=== PATIENT | female | born 1955 | race Two or more races ===

== ENCOUNTER 2019-09-22 13:34 | Day surgery (SDC) | payer BC ==
--- NOTE | 2019-09-22 06:50 | P.GSHP ---
History of Present Illness H&P Date: 09/22/19 CHIEF COMPLAINT: Ventral hernia HISTORY OF PRESENT ILLNESS: The patient is a 64-year-old female who presents with a history of swelling and pain along the abdomen from a hernia. Now he presents for surgical intervention. PAST MEDICAL HISTORY: Please see list. PAST SURGICAL HISTORY: Please see list. MEDICATIONS: Please see list. ALLERGIES: Please see list. SOCIAL HISTORY: Please see list. FAMILY HISTORY: No reports of Crohn disease or ulcerative colitis. REVIEW OF ORGAN SYSTEMS: CONSTITUTIONAL: No reports of fevers or chills. No reports of weight loss despite prior attempts. GI: Denies any blood in stools or constipation. PHYSICAL EXAM: VITAL SIGNS: Stable GENERAL: Well-developed pleasant male in no acute distress. HEENT: No scleral icterus. Extraocular movements grossly intact. Moist buccal mucosa. NECK: Supple without lymphadenopathy. CHEST: Unlabored respirations. Equal bilateral excursions. CARDIOVASCULAR: Irregular rate and rhythm. Distal 2+ pulses. ABDOMEN: Soft, nondistended. Palpable defect of the abdomen. No peritoneal signs. MUSCULOSKELETAL: No clubbing, cyanosis, or edema. ASSESSMENT: 1. Ventral hernia PLAN: 1. Recommend proceeding with robotic ventral hernia repair with mesh. 2. Benefits and risks of surgical intervention was discussed including possibility of open technique. 3. DVT prophylaxis. 4. Antibiotic prophylaxis. Past Medical History Past Medical History: Atrial Fibrillation, GERD/Reflux, Hyperlipidemia, Hypertension, Pneumonia Additional Past Medical History / Comment(s): Hx Pneumonia 2014, A-Fib X2 occasions once in 2014 with Pneumonia and once 4-5 yrs prior to that. Sinus issues, seasonal allergies in spring. Hx Borderline Diabetes 6 months ago, no treatment and no problems now. History of Any Multi-Drug Resistant Organisms: None Reported Past Surgical History: Appendectomy, Section, Cholecystectomy, Orthopedic Surgery, Tubal Ligation Additional Past Surgical History / Comment(s): BUNIONECTOMY RT FOOT X2, COLONOSCOPY, SECTION X3, TUBAL . Past Anesthesia/Blood Transfusion Reactions: Previous Problems w/ Anesthesia, Postoperative Nausea & Vomiting (PONV) Additional Past Anesthesia/Blood Transfusion Reaction / Comment(s): WITH LAST BUNIONECTOMY HAD DIFFICULTY WAKING FROM ANESTHESIA, "high BP with gallbladder surgery, had yo stay overnight because of it." Past Psychological History: No Psychological Hx Reported Smoking Status: Never smoker Past Alcohol Use History: Occasional Past Drug Use History: None Reported - Past Family History Brother(s) Family Medical History: Cancer Additional Family Medical History / Comment(s): Colon Cancer. Father Family Medical History: Diabetes Mellitus Additional Family Medical History / Comment(s): LUNG CANCER, EMPHYSEMA. Mother Family Medical History: Cancer, CVA/TIA, Hyperlipidemia, Hypertension Additional Family Medical History / Comment(s): BREAST/BONE CANCER. Medications and Allergies Home Medications Medication Instructions Recorded Confirmed Type Acetaminophen [Tylenol] 650 mg PO Q4H PRN 03/13/15 09/19/19 History Magnesium Oxide [Mag-Ox] 250 mg PO DAILY 03/13/15 09/19/19 History [place]-3 Fatty Acids/Fish Oil [Fish 1 each PO DAILY 03/13/15 09/19/19 History Oil 1,000 mg Softgel] Omeprazole [PriLOSEC] 20 mg PO QAM 03/15/15 09/19/19 History Apixaban [Eliquis] 5 mg PO BID 09/19/19 09/19/19 History Atenolol 50 mg PO QAM 09/19/19 09/19/19 History Equate Allergy Relief 10 mg PO HS PRN 09/19/19 09/19/19 History Pravastatin Sodium [Pravachol] 10 mg PO DAILY 09/19/19 09/19/19 History amLODIPine [Norvasc] 10 mg PO HS 09/19/19 09/19/19 History Allergies Allergy/AdvReac Type Severity Reaction Status Date / Time venom-honey bee Allergy Swelling Verified 09/19/19 09:33 [bee venom (honey bee)]
[~2019-09-22 13:34] MED LIST: ACETAMINOPHEN TAB 500 MG TAB PO STA; DEXAMETHASONE SOD PHOSPHATE 10 MG/ML 1 ML VIAL IV ONE; GABAPENTIN 300 MG CAP PO STA; HEPARIN SODIUM,PORCINE 5,000 UNIT/ML 1 ML VIAL SQ ONE; LIDOCAINE 1% 20 ML VIAL (10MG/ML) FOR IV START INTRADERMA PRN; MIDAZOLAM 2 MG/2 ML VIAL IV PRN; ONDANSETRON 4 MG/2 ML VIAL IVP ONE; SCOPOLAMINE 1.5MG/72HR PATCH TRANSDERM ONE
[2019-09-22] MEDS: LACTATED RINGERS 1,000 ML IV SCH (14:44)
[2019-09-22] MEDS ORDERED: MIDAZOLAM 2 MG/2 ML VIAL IV ONE (15:20)
--- NOTE | 2019-09-22 15:38 | P.ANPRN ---
Procedure Note - Anesthesia - Nerve Block Performed Bilateral Rectus Abdominis Single Time Out Performed: Yes Date of Procedure: 09/22/19 Procedure Start Time: 15: Procedure Stop Time: : Location of Patient Procedure: PreOp Indication: Acute Post-Operative Pain, Requested by Surgeon Sedation Type: Sedate with meaningful contact maintained Preparation: Sterile Prep Position: Supine Needle Types: Pajunk Needle Gauge: 21 Ultrasound used to visualize needle placement: Yes Ultrasound used to observe medication spread: Yes Blood Aspirated: No Pain Paresthesia on Injection Noted: No Resistance on Injection: Normal Image Stored and Saved: Yes Events: Uneventful and Well Tolerated (ropi .5% 15cc plus xylo 2% with epi 5cc each side)
[2019-09-22] MEDS ORDERED: LIDOCAINE 2%-EPI 1:100,000 20 ML VIAL ONE (16:38)
[2019-09-22] MEDS ORDERED: NEOSTIGMINE 1 MG/ML 10 ML VIAL ONE (16:38)
[2019-09-22] MEDS ORDERED: PROPOFOL 10 MG/ML 20 ML VIAL IV ONE (16:38)
[2019-09-22] MEDS ORDERED: ROPIVACAINE 5 MG/ML 30 ML VIAL ONE (16:38)
[2019-09-22] MEDS ORDERED: LIDOCAINE 1% INJ 10MG/ML (20 ML MDV) ONE (16:38)
[2019-09-22] MEDS ORDERED: ROCURONIUM BROMIDE 10 MG/ML 10 ML VIAL IV ONE (16:38)
[2019-09-22] MEDS ORDERED: fentaNYL (PF) 50 MCG/ML 2 ML AMP ONE (16:38)
[2019-09-22] MEDS ORDERED: MIDAZOLAM 2 MG/2 ML VIAL ONE (16:38)
[2019-09-22] MEDS ORDERED: GLYCOPYRROLATE 0.2 MG/ML 2 ML VIAL ONE (16:38)
[2019-09-22] MEDS ORDERED: SUCCINYLCHOLINE CHLORIDE 100 MG/5 ML SYR IV ONE (16:38)
[2019-09-22] MEDS ORDERED: LIDOCAINE 2%-EPI 1:100,000 20 ML VIAL SQ ONE (17:20)
[2019-09-22] MEDS ORDERED: LACTATED RINGERS 1,000 ML IV ONE (17:46)
[2019-09-22] MEDS ORDERED: ACETAMINOPHEN TAB 325 MG TAB PO PRN (18:00)
[2019-09-22] MEDS ORDERED: HYDROcodone/APAP 5-325MG 1 EACH TAB PO PRN (18:00)
[2019-09-22] MEDS ORDERED: NALOXONE 0.4 MG/ML 1 ML VIAL IV PRN (18:00)
[2019-09-22] MEDS ORDERED: ONDANSETRON 4 MG/2 ML VIAL IVP PRN (18:00)
[2019-09-22] MEDS ORDERED: LORATADINE 10 MG TAB PO PRN (18:01)
--- NOTE | 2019-09-22 18:13 | P.OP ---
Date of Procedure: 09/22/19 Description of Procedure: SURGEON: ARIN RAMIREZ MD PREOPERATIVE DIAGNOSES: 1. Initial umbilical hernia with incarceration 2. Chronic atrial fibrillation 3. Chronic anticoagulant therapy 4. Hypertensive heart disease 5. Obesity due to excess calories, BMI 31.9 6. Gastroesophageal reflux disease POSTOPERATIVE DIAGNOSES: 1. Initial umbilical hernia with incarceration, 3 cm 1. Initial umbilical hernia with incarceration 2. Chronic atrial fibrillation 3. Chronic anticoagulant therapy 4. Hypertensive heart disease 5. Obesity due to excess calories, BMI 31.9 6. Gastroesophageal reflux disease OPERATION: 1. Robotic-assisted da Ton Xi laparoscopic repair of initial incarcerated ventral hernia 3-cm with mesh, ventralight ST mesh 11.4 cm ANESTHESIA: General with local ESTIMATED BLOOD LOSS: 10 mL. SPECIMENS: None. COMPLICATIONS: None. INDICATIONS: The patient is a 64-year-old female who presents with initial umbilical hernia. Surgical intervention with laparoscopic versus robotic and open techniques were reviewed. Placement of mesh was also reviewed. Benefits and risks were thoroughly described. Informed consent was obtained. DESCRIPTION OF PROCEDURE: The patient was brought into the operating room and laid in supine position. After general induction, the abdomen had been prepped and draped in standard sterile fashion. Ioban draping was also placed. Prior to incision, a timeout protocol was confirmed with surgical team regarding the patient's name including procedures to be performed. The robot was primed prior to the procedure. A field block using local anesthetic was placed along hernia site including the proposed port sites. Initial incision was made with an #11 blade along the left upper quadrant. A 0 degree 5 mm laparoscopic trocar entry was performed. Diagnostic laparoscopy demonstrated an incarcerated umbilical hernia. Three 8 mm trocars were placed along the right lateral abdominal wall. Placements of the ports were 15 cm from the target anatomy and 9 cm apart. The [employer] Xi robot was previously primed, prepped and draped then docked along the left side of the patient. I then sat at the robot Da Ton Xi console where working arms of the robot were scissors, needle ups driver, and graspers placed by the city carrier assistant. Attention was brought to the umbilicus where an incarcerated umbilical hernia was identified containing fat and omentum. The incarcerated contents was reduced as the peritoneal fat was cleaned from the abdominal wall. Next, hemostasis was checked with cautery. The hernia defect of 3-cm was oversewn using #1 VLOC with fascial imbrication 3. Next, ventralight ST mesh 11.4 cm was placed with the rough side towards the abdominal wall. 2-0 VLOC 9 inch sutures were used to fixate the mesh. A final endoscopic imaging was obtained. All instruments and pneumoperitoneum were evacuated from the abdominal cavity. The da Ton Xi robot was undocked from the patient. I re-scrubbed into the case for closure of incisions. An umbilical dressing using 4 x 4 and Tegaderm was placed. The incisions were reapproximated using 4-0 Monocryl in an interrupted subcuticular fashion. Exofin liquid glue was applied to the skin after cleansing the skin with normal saline and dilute hydrogen peroxide. Dressings using 4 x 4 and Tegaderm was placed at the belly button. An abdominal binder was placed. At the end of the procedure, needle, sponge, and instrument count had been verified correct by fiber technician. The patient was taken to the postanesthesia care unit in stable condition. FINDINGS: 1. Intial incarcerated umbilical hernia, 3 cm with contents of omentum and peritoneal fat. Plan - Discharge Summary Discharge Rx Participant: No New Discharge Prescriptions: New HYDROcodone/APAP 5-325MG [[place] 5-325] 1 tab PO Q6HR PRN 3 Days #10 tab PRN Reason: Pain Acetaminophen Tab [Tylenol Tab] 500 mg PO Q6H PRN #30 tablet PRN Reason: Pain Continue Magnesium Oxide [Mag-Ox] 250 mg PO DAILY Omeprazole [PriLOSEC] 20 mg PO QAM amLODIPine [Norvasc] 10 mg PO HS Equate Allergy Relief 10 mg PO HS PRN PRN Reason: Allergic Reaction Atenolol 50 mg PO QAM Discontinued [place]-3 Fatty Acids/Fish Oil [Fish Oil 1,000 mg Softgel] 1 each PO DAILY Acetaminophen [Tylenol] 650 mg PO Q4H PRN PRN Reason: Pain Apixaban [Eliquis] 5 mg PO BID No Action Pravastatin Sodium [Pravachol] 10 mg PO DAILY Discharge Medication List Magnesium Oxide [Mag-Ox] 250 mg PO DAILY 03/13/15 [History] Omeprazole [PriLOSEC] 20 mg PO QAM 03/15/15 [History] Atenolol 50 mg PO QAM 09/19/19 [History] Equate Allergy Relief 10 mg PO HS PRN 09/19/19 [History] Pravastatin Sodium [Pravachol] 10 mg PO DAILY 09/19/19 [History] amLODIPine [Norvasc] 10 mg PO HS 09/19/19 [History] Acetaminophen Tab [Tylenol Tab] 500 mg PO Q6H PRN #30 tablet 09/22/19 [Rx] HYDROcodone/APAP 5-325MG [[place] 5-325] 1 tab PO Q6HR PRN 3 Days #10 tab 09/22/19 [Rx] Follow up Appointment(s)/Referral(s): Arin Ramirez MD [STAFF PHYSICIAN] - 09/26/19 (Please call to confirm time) Patient Instructions/Handouts: Laparoscopic Herniorrhaphy (DC), Ventral Hernia Repair (GEN) Activity/Diet/Wound Care/Special Instructions: No lifting for 4 pounds in 4 weeks until October 22March shower. No bathtub soaks for 2 weeks until October 06. Wear abdominal binder daily for comfort except for showering. Do not remove umbilical dressing, if present. Will be removed by doctor. DO NOT DRIVE WHILE ON NARCOTICS. Discharge Disposition: HOME SELF-CARE
[2019-09-22] MEDS: HYDROmorphone 0.5 MG/0.5 ML SYRINGE IVP PRN ×2 (18:28→18:51)
[2019-09-22] MEDS ORDERED: HYDROmorphone 1 MG/ML 1 ML SYRINGE IVP PRN (18:38)
[2019-09-22] MEDS ORDERED: ACETAMINOPHEN IV (For NPO) 1,000 MG in EMPTY BAG 1 BAG IVPB ONE (19:00)
[2019-09-22] MEDS ORDERED: SODIUM CHLORIDE 0.9% 1,000 ML IV ONE (19:14)
[2019-09-22] MEDS ORDERED: TAMSULOSIN 0.4 MG CAP.ER.24H PO ONE (20:00)
[2019-09-22] MEDS: SODIUM CHLORIDE 0.9% 1,000 ML IV SCH (20:16)
[2019-09-22 20:35] VITALS: BMI 31.8
[2019-09-22] MEDS ORDERED: amLODIPine 10 MG TAB PO SCH (21:00)
[2019-09-23] MEDS: SODIUM CHLORIDE 0.9% 1,000 ML IV SCH (06:23)
[2019-09-23] MEDS: LACTATED RINGERS 1,000 ML IV SCH (06:30)
[2019-09-23] MEDS ORDERED: PANTOPRAZOLE 40 MG TABLET PO SCH (07:30)
[2019-09-23] MEDS ORDERED: TAMSULOSIN 0.4 MG CAP.ER.24H PO SCH (08:30)
[2019-09-23] MEDS ORDERED: ATENOLOL 50 MG TAB PO SCH (09:00)
[2019-09-23] MEDS ORDERED: MAGNESIUM OXIDE 400 MG TAB PO SCH (09:00)
[2019-09-23 09:21] VITALS: BP 143/73; PULSE 75; RESP 20; TEMP 97.8
--- NOTE | 2019-09-23 10:52 | P.PN ---
Progress Note - Text Progress Note Date: 09/23/19 The patient's amylase [place]. She feels well. She has minimal signs of pain. On exam her vital signs are stable. Her abdomen soft. Incision sites are clean and intact. Status post laparotomy and repair of hernia. Patient is doing quite well she will be discharged home and follow-up with Dr. Grimm next week
== END 2019-09-23 10:33 | disposition home or self-care (01) ==
LOC: OR 13:34 → 6PED 18:23 → OR 09-23 10:33
PROVIDERS: ATTEND Surgery Plastic and Reconstructive Surgery
DX: K42.0 Umbilical hernia with obstruction, without gangrene (principal); E66.09 Other obesity due to excess calories; Z68.31 Body mass index [BMI] 31.0-31.9, adult; K21.9 Gastro-esophageal reflux disease without esophagitis; I11.9 Hypertensive heart disease without heart failure; I48.0 Paroxysmal atrial fibrillation; Z79.899 Other long term (current) drug therapy; E78.5 Hyperlipidemia, unspecified; Z98.890 Other specified postprocedural states; Z87.01 Personal history of pneumonia (recurrent); Z90.49 Acquired absence of other specified parts of digestive tract; Z98.891 History of uterine scar from previous surgery; J30.2 Other seasonal allergic rhinitis; Z80.0 Family history of malignant neoplasm of digestive organs; Z80.1 Family history of malignant neoplasm of trachea, bronchus and lung; Z79.01 Long term (current) use of anticoagulants; Z91.030 Bee allergy status
CPT/HCPCS: 49653; 64488; J2250; J1100; J0690; J2405; J0131; J1170